=== PATIENT | male | born 1960 | race Caucasian/White ===

== ENCOUNTER 2022-10-14 14:55 | Emergency (ER) | payer MEDICARE, OTHER ==
[~2022-10-14] VITALS: Ht 175.3 cm; Wt 81.7 kg
--- OUTSIDE RECORDS SUMMARY | ~2022-10-14 | XMS | Continuity of Care Document ---
Demographics + + + | Address | [address] | | | [place] [address] | + + + | Preferred Language | Unknown | + + + | Marital Status | Never | + + + | Mormonism Affiliation | Unknown | + + + | Race | White | + + + | Ethnic Group | Unknown | + + + Author + + + | Author | [facility] | + + + | Organization | [facility] | + + + | Address | [address] | | | [place] [address] | + + + | Phone | | + + + Care Team Providers + + + + | Care Compounding Technician Name | Role | Phone | + + + + Unavailable | Unavailable | + + + + Allergies No information. Encounters No information. Functional Status No information. Immunizations No information. Medications No information. Problems + + + + | date | description | facility | + + + + | 2022-08-18 10:20 | ENCNTR SCREEN FOR | [facility] | | | MALIGNANT NEOPLASM OF | | | | RESPIRATORY ORGANS | | + + + + | 2022-08-18 10:20 | TOBACCO USE | [facility] | + + + + | 2022-08-18 10:20 | PERSONAL HISTORY OF | [facility] | | | NICOTINE DEPENDENCE | | + + + + Procedures No information. Results/Labs No information. Social History No information. Vital Signs No information."
--- OUTSIDE RECORDS SUMMARY | ~2022-10-14 | XMS | Continuity of Care Document ---
Demographics + + + | Address | [address] | | | [place] [address] | + + + | Preferred Language | Unknown | + + + | Marital Status | Never | + + + | Religion Affiliation | Unknown | + + + | Race | White | + + + | Ethnic Group | Unknown | + + + Author + + + | Author | [facility] | + + + | Organization | [facility] | + + + | Address | [address] | | | [place] [address] | + + + | Phone | | + + + Care Team Providers + + + + | Care Jar Capper Name | Role | Phone | + [...]
[~2022-10-14 14:55] MED LIST: ASPIRIN EC81 MG PO; CEPHALEXIN500 MG PO; FLOMAX0.4 MG PO; GABAPENTIN300 MG PO; LOVASTATIN10 MG PO; MELOXICAM15 MG PO; NORCO 5-325 TA1 EACH PO; OMEPRAZOLE20 MG PO; TERAZOSIN HCL1 MG PO; WELLBUTRIN XL150 MG PO; ZESTRIL20 MG PO
--- OUTSIDE RECORDS SUMMARY | 2022-10-14 14:59 | XMS ---
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 E.DJessy VISIT COUNT (12 MO.) 1 [facility] Stre[facility] TOTAL 1 NOTE: Visits indicate total known visits. ED/UCC VISIT TRACKING (12 MO.) 10/14/2022 14:[address] [facility] [place] TYPE: Emergency COMPLAINT: - FACIAL NUMBNESS INPATIENT VISIT TRACKING (12 MO.) No inpatient visits to display in this time frame [email or web address]
[2022-10-14 15:11] LABS: EOSINOPHILS 0.6 % (0-6); MONOCYTES 7.9 % (0-12); NEUTROPHILS 76.3 % (39-80)
[2022-10-14 15:14] LABS: BASOPHILS 0.8 % (0-2); HEMATOCRIT 42.9 % (35.0-50.0); HEMOGLOBIN 14.4 g/dL (12.0-18.0); LYMPHOCYTES 14.4 % (24-44); MCH 31.7 (27-36); MCHC 33.7 g/dl (30-36); PLATELET COUNT 304 K/uL (140-440); RBC 4.56 M/ul (4.3-5.7); RDW 13.2 (10.5-15.0)
[2022-10-14 15:20] LABS: PARTIAL THROMBOPLASTIN TIME 30.5 Sec (22.9-41.3)
[2022-10-14 15:21] LABS: INR 0.95 (0.80-1.30); PROTIME 12.2 Sec (11.2-14.2)
[2022-10-14 15:27] LABS: ALBUMIN 4.6 g/dL (3.4-5.0); ALBUMIN/GLOBULIN RATIO 1.24 (1.1-2.4); ANION GAP 16.6 (7-21); BILIRUBIN, TOTAL 0.6 ng/dL (0.2-1.0); BUN/CREATININE RATIO 21.05 (6.0-28.6); CALCIUM 9.3 mg/dL (8.5-10.1); CREATININE, SERUM 0.95 mg/dL (0.70-1.30); POTASSIUM 3.6 mmol/L (3.5-5.1); PROTEIN, TOTAL 8.3 g/dL (6.4-8.2)
[2022-10-14] MEDS ORDERED: LOSARTAN POTASS25 MG PO (15:27)
[2022-10-14 19:11] VITALS: BP 164/92
--- NOTE | 2022-10-14 23:20 | EKG ---
[facility] [address] [place] [address] Signed Normal sinus rhythm Left axis deviation Abnormal ECG When compared with ECG of 17-FEB-2021 08:38, QT has lengthened Confirmed by Amada Echevarria MD () on 10/14/2022 11:19:59 PM Electronically Signed By: AMADA ECHEVARRIA MD 10/14/222319 PATIENT NAME: LOLISFINN JUAN JOSE Electrocardiogram DATE OF : 56 PHYSICIAN: AMADA ECHEVARRIA MD REPORT #: [id number] REPORT IS CONFIDENTIAL AND NOT TO BE RELEASED WITHOUT AUTHORIZATION
== END 2022-10-14 19:23 | disposition short-term general hospital (02) ==
LOC: ED 14:55
PROVIDERS: Student in an Organized Health Care Education/Training Program
DX: I63.032 Cerebral infarction due to thrombosis of left carotid artery (principal); R47.01 Aphasia; R29.810 Facial weakness; R29.709 NIHSS score 9; I10 Essential (primary) hypertension; F17.200 Nicotine dependence, unspecified, uncomplicated; Z88.8 Allergy status to other drugs, medicaments and biological substances; Z79.899 Other long term (current) drug therapy
CPT/HCPCS: 36415; 70450; 70496; 70498; 71045; 80053; 84484; 85025; 85610; 85730; 93005; 93010; 99285-25; Q9967

== ENCOUNTER 2025-02-23 16:56 | Emergency (ER) | payer OTHER, MEDICARE ==
[~2025-02-23] VITALS: Ht 175.3 cm; Wt 83.5 kg
[~2025-02-23 16:56] MED LIST changes: +LOSARTAN POTASS25 MG PO; +TRAMADOL HCL50 MG PO
--- OUTSIDE RECORDS SUMMARY | 2025-02-23 17:03 | XMS ---
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 E.Adis VISIT COUNT (12 MO.) 3 AMANDA Streeter TOTAL 3 NOTE: Visits indicate total known visits. ED/UCC VISIT TRACKING (12 MO.) 02/23/2025 16:57 [facility] [place] TYPE: Emergency COMPLAINT: - POSSIBLE STROKE 02/21/2025 09:54 [facility] [place] TYPE: Emergency COMPLAINT: - FACIAL PAIN 02/17/2025 16:57 [facility] [place] TYPE: Emergency COMPLAINT: - LACERATION INPATIENT VISIT TRACKING (12 MO.) 05/13/2024 07:28 [facility] 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
[2025-02-23] MEDS ORDERED: ATORVASTATIN CA80 MG PO (17:18)
[2025-02-23 19:39] VITALS: BP 122/77
[2025-03-04] MEDS ORDERED: ONDANSETRON ODT4 MG PO (13:08)
== END 2025-02-23 19:39 | disposition home or self-care (01) ==
LOC: ED 16:56
DX: R51.9 Headache, unspecified (principal); I10 Essential (primary) hypertension; F17.200 Nicotine dependence, unspecified, uncomplicated; Z79.899 Other long term (current) drug therapy; Z88.8 Allergy status to other drugs, medicaments and biological substances
CPT/HCPCS: 70450; 99284-25